=== PATIENT | male | born 1995 | race Caucasian/White ===

== ENCOUNTER 2016-07-29 21:12 | Emergency (ER) | payer BC | END 2016-07-29 21:59 | disposition home or self-care (01) | LOC: ER 21:12 | DX: S62.002A Unspecified fracture of navicular [scaphoid] bone of left wrist, initial encounter for closed fracture (principal); S50.312A Abrasion of left elbow, initial encounter; F32.9 Major depressive disorder, single episode, unspecified; Z23 Encounter for immunization; V00.131A Fall from skateboard, initial encounter | CPT/HCPCS: 90471 ==